=== PATIENT | female | born 1995 | race Caucasian/White ===

== ENCOUNTER 2025-02-12 06:44 | Inpatient (IN) ==
[2025-02-12] MEDS ORDERED: LIDOCAINE 1% LOCAL 20 ML VIAL INFIL PRN (11:02)
--- NOTE | 2025-02-12 11:08 | History & Physical Report ---
Date of Service February 12, 2025 Assessment & Plan (1) : Plan: Admit in labor History of Present Illness Chief Complaint: onst of labor Primary Care Provider: Louise Machado MD 29 F P0000 at 40.1 weeks presents to L&D in early labor. GBS is negative. course has been uneventful. Allergies Allergy/AdvReac Type Severity Reaction Status Date / Time No Known Allergies Allergy Verified 11/17/24 08:20 Home Medications Medication Instructions Recorded Confirmed Type vitamins no.121-iron 28 1 tab PO DAILY 09/01/24 02/12/25 History mg-folic acid 800 mcg tablet breast pump #1 ea 11/19/24 Rx Patient History Medical History Vaginal Pap smear with ASC-US Varicella vaccination Surgical History S/P wisdom tooth extraction Family History Grandmother (Paternal) Breast cancer Mother Cancer of kidney Denies family history of Ovarian cancer Colorectal cancer Social History Smoking Status: Never smoker Do You Dip or Chew Tobacco: No; Hx Alcohol Use: No Hx Substance Use: No Preferred Language: Portuguese Communication Ability: Effective [place] Planning Manager Required: No Beliefs That Will Affect Care: None marital status: marital status details: Brad Pagan ([phone] Current Living Situation: Spouse Current Living Situation Comment: lives with spouse, dog, cat-spouse changing litter current occupational status: employed current occupation: [employer] Other Information That Helps Us Care for You: No Feels Safe at Home: Yes Safety Concerns: Feels Safe At This Time 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 History hx of ASCUS Pap Review of Systems All systems reviewed & are unremarkable except as noted in HPI & below Physical Exam Constitutional: WD/WN, vitals as above Eyes: PERRL, conjunctivae normal, anicteric sclerae Respiratory: normal respiratory effort Cardiovascular: Rate/Rhythm: regular rate and regular rhythm Gastrointestinal (Abdomen): Inspection/Auscultation: abdomen normal to inspection Musculoskeletal: Extremities: extremities normal to inspection Skin: no rashes, warm and dry Neurologic: patellar DTR's 2+ bilat, sensation intact Psychiatric: A+Ox3, euthymic affect Genitourinary: no vaginal lesions, no adnexal mass OB Exam Abdomen: + fundal height and + vertex Manual OB Exam: + cervical dilation 4 cm, + cervical effacement 90% and + station -2 OB Exam Monitor Tracing: + external FHT monitor used, + external uterine monitor used, + category I and + normal FHT variability Results & Data Vital Signs (Past 12 Hours) Vital Signs Temp Pulse Resp BP 02/12/25 06:58 37.0 C 20 02/12/25 06:57 96 H 130/74 Code Status & VTE Plan VTE Prophylaxis Plan VTE Prophylaxis will be ordered: No Monitoring External Monitor Cat 1 (1) Weeks of gestation: 40 weeks Qualified Code(s): Z3A.40 - 40 weeks gestation of
[2025-02-12 11:55] LABS: Hematocrit (blood only) 36.5 % (37.0-47.0); Hemoglobin 12.7 g/dL (12.0-16.0); Mean Corpuscular Hemoglobin 28.7 pg (25.0-34.0); Mean Corpuscular Volume 82.4 fL (80.0-100.0); Platelet Count 162 K/uL (130-400); RDW Standard Deviation 40.0 fL (36.4-46.3); Red Blood Count 4.43 M/uL (4.20-5.40); White Blood Count 15.97 K/ul (4.8-10.8)
[2025-02-12] MEDS: LACTATED RINGER'S 1,000 ML IV PRN (12:30)
[2025-02-12] MEDS ORDERED: NALBUPHINE HCL INJ 10 MG/ML AMP IV PRN (12:56)
[2025-02-12] MEDS ORDERED: PROMETHAZINE 6.25 MG/50.25 ML BAG IV PRN (12:56)
[2025-02-12] MEDS ORDERED: ONDANSETRON INJ 2 MG/ML 2 ML VIAL IV PRN (12:56)
[2025-02-12] MEDS ORDERED: ROPIVACAINE 0.5% PF 5 MG/ML 20 ML VIAL EPI PRN (12:56)
[2025-02-12] MEDS ORDERED: NALOXONE HCL 1 MG in SODIUM CHLORIDE 0.9% 1,000 ML IV PRN (12:56)
[2025-02-12] MEDS ORDERED: diphenhydrAMINE 50 MG/ML VIAL IV PRN (12:56)
[2025-02-12] MEDS ORDERED: LIDOCAINE 2% MPF LOCAL 5 ML VIAL EPI PRN (12:56)
[2025-02-12] MEDS ORDERED: NALOXONE HCL 0.4 MG/1 ML VIAL/CARP IV PRN (12:56)
[2025-02-12] MEDS ORDERED: BUPIVACAINE 0.25% PF 30 ML VIAL EPI PRN (12:56)
[2025-02-12] MEDS ORDERED: SODIUM CHLORIDE 0.9% PF INJ 10 ML VIAL EPI PRN (12:56)
--- NOTE | 2025-02-12 12:56 | Anesthesiology Consultation ---
Date of Service February 12, 2025 Assessment & Plan Chart Review Chart Review: Patient NOT seen in Pre Admission Testing and Acceptable Risk for Labor Epidural Consults Requested none ASA ASA2 Proposed Anesthesia Anesthesia Type: Labor Epidural Risk / Benefits Reviewed With: PT / POA / Parent / Guardian, Accepts Plan and Informed Consent Obtained History Height/Weight Height: 5 ft 8 in Weight: 93.894 kg Allergies Allergy/AdvReac Type Severity Reaction Status Date / Time No Known Allergies Allergy Verified 11/17/24 08:20 Medications Home Medications Medication Instructions Recorded Confirmed Last Taken vitamins no.121-iron 28 1 tab PO DAILY 09/01/24 02/12/25 02/09/25 08:00 mg-folic acid 800 mcg tablet breast pump #1 ea 11/19/24 Unknown Active Medications Generic Name Dose Route Start Last Admin Trade Name Freq PRN Reason Stop Dose Admin Lactated Ringer's 1,000 mls @ 125 mls/hr 02/12/25 11:02 02/12/25 12:30 Lr IV 02/14/25 11:01 999 mls/hr .Q8H PRN Administration L&D Protocol Protocol Past Medical History Medical History Vaginal Pap smear with ASC-US Varicella vaccination Exercise / Class Metabolic Activity II 4-5 Yardwork/Stairs/Walk up hill Past Family History Family History Grandmother (Paternal) Breast cancer Mother Cancer of kidney Denies family history of Ovarian cancer Colorectal cancer Past Surgical History Surgical History S/P wisdom tooth extraction Past Anesthesia History No Hx of Anesthesia Complications and No Family Hx of Anesthesia Complications History of PONV No Hx of PONV and No Hx of Motion Sickness Social History Smoking Status: Never smoker Do You Dip or Chew Tobacco: No Hx Alcohol Use: No Hx Substance Use: No Physical Exam Vital Signs Last Vital Signs Temp 37.0 C 02/12/25 06:58 Pulse 82 02/12/25 11:59 Resp 20 02/12/25 06:58 BP 136/70 02/12/25 11:59 ENMT Mouth: no dentition abnormality Thyromental Distance: > or= 3.5 Finger Breadths Mallampati Class: II Neck normal visual inspection Respiratory normal respiratory effort Auscultation: lungs clear to auscultation bilaterally Cardiovascular Rate/Rhythm: regular rate and regular rhythm Psychiatric Orientation: alert Testing Laboratory Results 02/12/25 11:24
[2025-02-12] MEDS: fentANYL 2 MCG/ML BUPIVacaine 0.125%-NSS 100ML BAG EPI PRN (13:06)
[2025-02-12] MEDS: SODIUM CHLORIDE 0.9% PF INJ 10 ML VIAL ONE (13:08)
[2025-02-12] MEDS: LIDOCAINE 2%/EPINEPHRINE 1:200,000 20 ML PF ONE (13:08)
[2025-02-12] MEDS: BUPIVACAINE 0.25% PF 30 ML VIAL ONE (13:08)
[2025-02-12] MEDS ORDERED: OXYTOCIN 30 UNITS/NSS 30 UNITS/500 ML BAG IV PRN ×2 (13:14→18:13)
--- NOTE | 2025-02-12 13:26 | Labor Progress Brief Note ---
Date of Service February 12, 2025 Assessment & Plan Admission and Anticipated Discharge Date Admission Date: February 12, 2025 Physical Exam Genitourinary: Manual OB Exam: + cervical dilation 8 cm, + cervical effacement 100%, + station -1 and + amniotic fluid clear OB Exam Monitor Tracing: + external FHT monitor used, + external uterine monitor used, + category I and + normal FHT variability AROM with Amni-hook clear fluid Results & Data Vital Signs (Past 12 Hours) Vital Signs Temp Pulse Resp BP Pulse Ox 02/12/25 13:20 107 H 100 02/12/25 13:15 90 18 99 02/12/25 13:14 100 H 121/74 02/12/25 13:12 93 H 123/73 02/12/25 13:10 18 02/12/25 13:10 18 02/12/25 13:10 99 02/12/25 13:10 87 02/12/25 13:10 91 H 120/76 02/12/25 13:08 94 H 122/82 02/12/25 13:07 18 02/12/25 13:07 18 02/12/25 13:06 93 H 124/80 02/12/25 13:05 92 H 97 02/12/25 13:00 85 98 02/12/25 12:55 94 H 100 02/12/25 11:59 82 136/70 02/12/25 06:58 37.0 C 20 02/12/25 06:57 96 H 130/74
--- NOTE | 2025-02-12 16:10 | Labor Progress Brief Note ---
Date of Service February 12, 2025 Assessment & Plan Admission and Anticipated Discharge Date Admission Date: February 12, 2025 Physical Exam Genitourinary: Manual OB Exam: + cervical dilation 10 cm, + cervical effacement 100%, + station 0 and + amniotic fluid clear OB Exam Monitor Tracing: + external FHT monitor used, + external uterine monitor used, + category I and + normal FHT variability will start to push Results & Data Vital Signs (Past 12 Hours) Vital Signs Temp Pulse Resp BP Pulse Ox 02/12/25 16:05 87 100 02/12/25 16:00 98 H 99 02/12/25 15:55 85 97 02/12/25 15:50 84 100 02/12/25 15:45 84 100 02/12/25 15:41 85 126/76 02/12/25 15:40 92 H 99 02/12/25 15:35 88 99 02/12/25 15:30 88 99 02/12/25 15:25 85 99 02/12/25 15:20 87 99 02/12/25 15:15 37.2 C 89 99 02/12/25 15:11 78 123/72 02/12/25 15:10 81 100 02/12/25 15:05 95 H 99 02/12/25 15:00 18 02/12/25 15:00 100 H 18 99 02/12/25 14:58 94 H 115/76 02/12/25 14:55 85 98 02/12/25 14:50 99 H 100 02/12/25 14:45 95 H 100 02/12/25 14:42 100 H 116/70 02/12/25 14:40 94 H 100 02/12/25 14:35 90 98 02/12/25 14:30 97 H 16 100 02/12/25 14:27 95 H 143/66 H 02/12/25 14:25 99 H 100 02/12/25 14:20 90 100 02/12/25 14:15 90 100 02/12/25 14:11 88 113/58 L 02/12/25 14:10 95 H 99 02/12/25 14:05 97 H 100 02/12/25 14:00 88 16 100 02/12/25 13:57 88 113/61 02/12/25 13:55 84 100 02/12/25 13:50 88 99 02/12/25 13:45 90 100 02/12/25 13:42 100 H 110/55 L 02/12/25 13:40 87 100 02/12/25 13:35 95 H 100 02/12/25 13:30 18 02/12/25 13:30 95 H 18 100 02/12/25 13:26 94 H 126/64 02/12/25 13:25 94 H 97 02/12/25 13:24 20 02/12/25 13:24 36.4 C L 20 02/12/25 13:20 107 H 100 02/12/25 13:15 90 18 99 02/12/25 13:14 100 H 121/74 02/12/25 13:12 93 H 123/73 02/12/25 13:10 18 02/12/25 13:10 18 02/12/25 13:10 99 02/12/25 13:10 87 02/12/25 13:10 91 H 120/76 02/12/25 13:08 94 H 122/82 02/12/25 13:07 18 02/12/25 13:07 18 02/12/25 13:06 93 H 124/80 02/12/25 13:05 92 H 97 02/12/25 13:00 85 98 02/12/25 12:55 94 H 100 02/12/25 11:59 82 136/70 02/12/25 06:58 37.0 C 20 02/12/25 06:57 96 H 130/74
[2025-02-12] MEDS: fentANYL 2 MCG/ML BUPIVacaine 0.125%-NSS 100ML BAG ONE (16:11)
[2025-02-12] MEDS: BUPIVACAINE 0.25% PF 30 ML VIAL EPI STA (16:11)
[2025-02-12] MEDS: SODIUM CHLORIDE 0.9% PF INJ 10 ML VIAL EPI STA (16:12)
[2025-02-12] MEDS: LIDOCAINE 2%/EPINEPHRINE 1:200,000 20 ML PF EPI STA (16:12)
[2025-02-12] MEDS: OXYTOCIN 30 UNITS/NSS 30 UNITS/500 ML BAG IV PRN (18:04)
[2025-02-12] MEDS ORDERED: DIPHTHER/TETAN/PERTUS Vaccine (Tdap, Adol/Adult) 0.5mL IM ONE (18:13)
[2025-02-12] MEDS ORDERED: IBUPROFEN 600 MG TAB PO PRN (18:13)
[2025-02-12] MEDS ORDERED: HYDROCORTISONE ACETATE 25 MG SUPP PR PRN (18:13)
[2025-02-12] MEDS ORDERED: ACETAMINOPHEN 325 MG TAB PO PRN (18:13)
--- NOTE | 2025-02-12 18:14 | Anesthesia Procedure Note ---
Date of Service February 12, 2025 Anesthesia Post Epidural Note Vital Signs Vital Signs: Temp Pulse Resp BP Pulse Ox 37.2 C 106 H 18 128/69 99 02/12/25 15:15 02/12/25 18:07 02/12/25 18:05 02/12/25 18:07 02/12/25 17:50 Notes Mental Status: alert / awake / arousable Nausea / Vomiting: adequately controlled Pain: adequately controlled Airway Patency, RR, SpO2: stable & adequate BP & HR: stable & adequate Hydration State: stable & adequate Neuraxial Anesthesia: was administered and sensory block is resolving Anesthetic Complications: no major complications apparent and Pt Satisfied with anesthetic care Epidural: Removed without complications and With tip intact
--- NOTE | 2025-02-12 18:16 | Delivery Summary ---
Vaginal Delivery Summary Date of Service February 12, 2025 Vaginal Delivery Summary live male KERRI with delayed cord clamping and Apgars 8/9 weight pending. Cord blood obtained followed by spontaneous delivery of intact placenta. Small first degree tear repaired with 3/0 Vicryl suture. QBL 100 ml. Final sponge, needle and instrument count are correct. Mom and baby stable.
[2025-02-12] MEDS: DOCUSATE SODIUM 100 MG CAP PO SCH (20:24)
[2025-02-12] MEDS: BENZOCAINE 20% SPRY 85 APPLN/85 GM CAN EXT PRN (20:29)
[2025-02-13 07:08] LABS: Hematocrit (blood only) 33.2 % (37.0-47.0); Hemoglobin 11.6 g/dL (12.0-16.0); Mean Corpuscular Hemoglobin 28.9 pg (25.0-34.0); Mean Corpuscular Volume 82.8 fL (80.0-100.0); Platelet Count 155 K/uL (130-400); RDW Standard Deviation 40.2 fL (36.4-46.3); Red Blood Count 4.01 M/uL (4.20-5.40); White Blood Count 15.47 K/ul (4.8-10.8)
[2025-02-13 07:52] VITALS: TEMP 97.9
[2025-02-13] MEDS: FERROUS SULFATE 325 MG TAB PO SCH (07:53)
[2025-02-13] MEDS: PRENATAL VITAMIN 1 TAB PO SCH (07:53)
--- NOTE | 2025-02-13 08:47 | Obstetrical Progress Note ---
Date of Service February 13, 2025 Assessment & Plan Admission and Anticipated Discharge Date Admission Date: February 12, 2025 Subjective abdomen soft and non tender no calf tenderness ambulating well vaginal bleeding scant hgb 11.6 Results & Data Vital Signs (Past 12 Hours) Vital Signs Temp Pulse Resp BP Pulse Ox O2 Del Method 02/13/25 07:50 36.6 C 96 H 19 118/78 98 Room Air 02/13/25 02:45 37 C 89 18 108/75 96 Room Air 02/12/25 23:14 36.8 C 89 18 121/79 99 Room Air
[2025-02-13 16:34] VITALS: BP 108/72; PULSE 86; RESP 18; O2SAT 98
== END 2025-02-13 19:00 | disposition home or self-care (01) | DRG 807 ==
LOC: OPB 06:44 → 4S1 06:48 → 4E2 20:25